=== PATIENT | female | born 2000 | race Caucasian/White ===

== ENCOUNTER 2019-10-12 19:15 | Emergency (ER) | payer BC, SELFPAY ==
[2019-10-12 19:29] VITALS: BP 133/86; PULSE 102; RESP 19; TEMP 37.8; O2SAT 98; BMI 33.1
--- NOTE | 2019-10-12 19:34 | HMH.EDUTC ---
[facility] [place] Clinical Impression: Encounter for laboratory testing for COVID-19 virus Sinusitis Qualifiers: Sinusitis location: unspecified location Chronicity: unspecified Qualified Code(s): J32.9 - Chronic sinusitis, unspecified Disposition: Home, Self-Care Condition on Discharge: Good Instructions: Sinusitis, Sinus Headache, DI for Sinusitis, Preventing the Spread of Coronavirus Discharge Instructions Additional Instructions: *Monitor Temp, Over the counter Motrin or Tylenol as directed/as needed Tylenol every 4 hours and Motrin every 6 hours (as long as your family doctor has told you that you can take it) for fever or pain. and straight to ER if unable to lower temp less than 101.0 after medication given *Warm salt water gargles may help to soothe the throat *Throat Lozenges *Warm fluids like tea with honey may help to soothe the throat *Sleep elevated *Humidifier/Vaporizer Call back to [facility] on Thursday to see if you test results are back GO home and quarantine as advised You was given handout on COVID Quarantine instructions make sure to follow those as advised there is two sets of instructions one for suspected and one for confirmed Your throat swab was sent for culture. Those results are typically sent to your primary care. Be sure to follow up in 2-3 days with your family doctor/primary care physician if no improvement so they can review those result and treat if necessary. If you don?t have a primary care doctor, I recommend you get one but in the mean time, you will have to return to a walk in clinic Follow up IMMEDIATELY for new or worsening symptoms or no Noticeable improvement over the next 48-72 hours. 911 for difficulty breathing or swallowing Prescriptions: Fluticasone Propionate [Flonase 50mcg nasal spray 16gm] 1 - 2 spr NS DAILY #1 bottle Transmission Status: Received by [id number] Azithromycin [Z-Fidel 250mg Tab] 250 mg PO DIRECTED #6 tab Transmission Status: Received by [id number] Referrals: Ani Gunderson [Primary Care Provider] - As needed Time of Disposition: 20:01 Medical Decision Making - Waldemar Inquiry Pt receiving controlled substance: No Waldemar was queried for this patient: No Vital Signs: 10/12/19 19:29 10/12/19 20:16 Temperature 100.0 F H 100 F H Temperature Source Oral Oral Pulse Rate 102 H Pulse Rate [Right Brachial] 102 H Respiratory Rate 19 19 Blood Pressure 133/86 Blood Pressure [Right Arm] 133/86 Blood Pressure Mean [Right Arm] 101 Blood Pressure Source [Right Arm] Automatic Cuff Blood Pressure Position [Right Arm] Sitting 02 Sat by Pulse Oximetry 98 Oxygen Delivery Method Room Air Room Air - Lab Data Lab results reviewed: Yes: I reviewed the patient's lab results. Orders (Tests/Meds): ED MEDICATIONS Discontinued Medications Generic Name Dose Route Start Last Admin Trade Name Freq PRN Reason Stop Dose Admin Acetaminophen 650 mg 10/12/19 19:53 10/12/19 20:00 Acetaminophen 325mg Tab PO 10/12/19 19:54 650 mg ONCE ONE Administration ORDERS Category Date Time Status SARS-CoV-2, CHAD Stat Lab 10/12/19 20:17 Received [facility] [place] - General Stated complaint: Headache, sore throat, Fever 100 Time Seen by Provider: 10/12/19 19:34 Mode of Arrival: Ambulatory Source of Information: Patient Limitations: No Limitations Description of Symptoms (Recalled from Triage Doc. by RN): fever, body aches, dizziness, cough HEENT Symptoms (Recalled from RN notes): Yes Resp Symptoms (Recalled from RN notes): Yes Skin Symptoms (Recalled from RN notes): No MS Symptoms (Recalled from RN notes): No Functional Status (Recalled from RN notes): none - History of Present Illness Provider Complaint: Patient state that she hasnt felt well for several days State that she has been having sore throat, drainage, sinus pain and pressure along with headache and dizzy at times when she moves quickly States that today she continued to f
[2019-10-12 20:16] VITALS: BP 133/86; PULSE 102; RESP 19; TEMP 37.7; O2SAT 98
[2019-10-12 20:59] LABS: UTC Strep Screen (Rapid) Negative (Negative)
[2019-10-14 14:09] LABS: Covid-19 Nasal PCR Sendout Lex NOT DETECTED
== END 2019-10-12 20:22 | disposition home or self-care (01) ==
PROVIDERS: Emergency Provider Nurse Practitioner; PCP Nurse Practitioner Family
DX: Z20.828 Contact with and (suspected) exposure to other viral communicable diseases (principal); J32.9 Chronic sinusitis, unspecified
CPT/HCPCS: 87880; 99202; U0004

== ENCOUNTER → 2019-10-15 18:21 | Outpatient (CLI) | payer BC, SELFPAY ==
--- NOTE | 2019-10-15 18:30 | XR_ITS ---
PROCEDURE: XR FOOT LT MIN 3V Patient Age:19Y CLINICAL INDICATION: CELLULITIS cellulitis darkened pigment and changes darkening at the 4th and 5th digits and distal metatarsals. No trauma COMPARISON: No exams were available for comparison FINDINGS: Right foot three view: . No fracture or dislocation. No lytic or blastic change. There is normal mineralization. The joint spaces are well-preserved. No significant degenerative/arthritic changes. No erosive changes evident. Is slight irregularity at the distal tuft 2nd 3rd toe appears to be merely baseline for this patient with distal tuft cortex seems to remain intact here.. If there should be progressive symptoms at these toes and cone down views would be warranted in follow-up. Osseous structures at the symptomatic 4th and 5th toe are intact and unremarkable on x-ray. There may be some mild swelling at 4th toe Midfoot is intact with slightly high plantar arch noted. Calcaneus intact. IMPRESSION: Osseous structures intact with no acute findings Mild swelling the foot into the toes particularly at notable at 4th toe Dictated by: Praneeth West MD 10/15/2019 22:01 Electronically signed by Praneeth West MD in [place] 10/15/2019 22:01
[2019-10-15 19:22] LABS: Basophils % 0.6 % (0.1-2.0); Eosinophils # 0.1 K/mm3 (0.0-0.4); Hematocrit 40.6 % (37.0-47.0); Hemoglobin 14.1 g/dL (12.2-16.2); Lymphocytes % 29.4 % (10-50); Mean Corpuscular HGB Conc 34.7 g/dL (31.8-35.4); Mean Corpuscular Hemoglobin 29.5 pg (27.0-31.2); Mean Corpuscular Volume 85.2 fl (81-99); Mean Platelet Volume 7.6 fl (7.4-10.4); Monocytes # 0.3 K/mm3 (0.1-1.0); Monocytes % 4.4 % (1.7-9.3); Neutrophils # 4.4 K/mm3 (1.8-7.8); Neutrophils % 64.6 % (37.0-80.0); Platelet Count 246 K/mm3 (142-424); Red Blood Count 4.76 M/mm3 (4.20-5.40); Red Cell Distribution Width 12.9 % (11.5-17.5); White Blood Count 6.8 K/mm3 (4.8-10.8)
[2019-10-15 19:33] LABS: Alanine Aminotransferase 26 U/L (12-78); Albumin Level 4.5 g/dl (3.5-5.0); Albumin/Globulin Ratio 1.4 (1.1-1.8); Alkaline Phosphatase 96 U/L (38-126); Anion Gap 12.4 mEq/L (5-15); Aspartate Amino Transferase 37 U/L (14-36); Bilirubin,Total 0.3 mg/dl (0.2-1.3); Blood Urea Nitrogen 10 mg/dl (7-17); Calcium 9.6 mg/dl (8.4-10.2); Carbon Dioxide 32 mmol/L (22.0-30.0); Chloride 102 mmol/L (98-107); Estimated Glomerular Filt Rate 106 ml/min (>60); GFR (African American) 128 ML/MIN (>60); Globulin 3.2 g/dL (1.3-3.2); Glucose 118 mg/dl (74-100); Potassium 3.4 mmoL/L (3.5-5.1); Sodium 143 mmol/L (136-145); Total Protein,Serum 7.7 g/dl (6.3-8.2)
[2019-10-17 19:38] LABS: EBV Ab VCA, IgG <18.0 U/mL (0.0-17.9); EBV Ab VCA, IgM <36.0 U/mL (0.0-35.9); EBV Nuclear Antigen Ab, IgG <18.0 U/mL (0.0-17.9)
== END ==
PROVIDERS: PCP Physician Assistant; Visit Provider Physician Assistant
DX: J02.9 Acute pharyngitis, unspecified (principal); L03.116 Cellulitis of left lower limb
CPT/HCPCS: 36415; 73630; 80053; 85025; 86664; 86665